=== PATIENT | male | born 1995 | race Caucasian/White ===

== ENCOUNTER 2021-04-19 01:50 | Emergency (ER) | payer SELFPAY ==
[~2021-04-19] VITALS: Ht 182.9 cm; Wt 113.6 kg
[2021-04-19 01:50] VITALS: BP 136/84
[2021-04-19] MEDS ORDERED: guaiFENesin DM 200MG/20MG 10 ML SYRUP PO ONE (02:15)
--- NOTE | 2021-04-19 02:23 | PHYS DOC ---
Adult General HPI HPI Patient is an otherwise healthy 25-year-old male who presents with a chief complaint of cough and body aches for the last 2 days. Denies any known ill contacts. Denies any recent trauma, travels, fevers, chest pain, shortness of breath, abdominal pain, nausea, vomiting, dysuria, hematuria, blood in the stool or diarrhea. States he is eating and drinking normally for him. States he is making urine and stool normally for him. Review of Systems Review of Systems Review of systems otherwise unremarkable except noted in HPI Physical Exam Physical Exam Constitutional: Well developed, well nourished, no acute distress, non-toxic appearance. [] HENT: Normocephalic, atraumatic, bilateral external ears normal, oropharynx moist, no oral exudates, nose normal. [] Eyes: conjunctiva normal, no discharge. [] Neck: Normal range of motion, no tenderness, supple, no stridor. [] Cardiovascular:Heart rate regular rhythm, no murmur [] Lungs & Thorax: Bilateral breath sounds clear to auscultation [] Skin: Warm, dry, no erythema, no rash. [] Extremities: No tenderness, no cyanosis, no clubbing, ROM intact, no edema. [] Neurologic: Alert and oriented X 3, normal motor function, normal sensory function, no focal deficits noted. [] Psychologic: Affect normal, judgement normal, mood normal. [] EKG EKG [] Radiology/Procedures Radiology/Procedures [] Heart Score C/O Chest Pain: No Risk Factors: Risk Factors: DM, Current or recent (<one month) smoker, HTN, HLP, family history of CAD, obesity. Risk Scores: Risk Factors: DM, Current or recent (<one month) smoker, HTN, HLP, family history of CAD, obesity. Course & Med Decision Making Course & Med Decision Making Patient is a 25-year-old male who presents with cough and body aches Vital signs not concerning. Physical exam noted above. Given Tylenol and cough medicine. Chest x-ray not concerning. Discussed all findings with patient and discussed symptomatic treatment at home for viral syndrome. Advised to follow-up with primary care physician in the morning to update on ED visit. Gave return precautions to the ED. Patient grateful, verbalized understanding and agreed with plan of discharge. Dragon Disclaimer Dragon Disclaimer This electronic medical record was generated, in whole or in part, using a voice recognition dictation system. Departure Departure: Impression: Primary Impression: Viral syndrome Disposition: HOME / SELF CARE / HOMELESS Condition: GOOD Referrals: DARVIN FOOTE MD (PCP) Patient Instructions: Viral Syndrome Additional Instructions: Thank you for coming into the emergency department tonight and allowing us to take care of you. Please read the attached information carefully to go back over some of the things we discussed. Please continue an [id number] regimen of Tylenol, ibuprofen and cough medicine as needed. Please follow-up with your primary care physician soon as you can update on ED visit and set up a follow-up. You were given a work note at your request. Please come back with new or concerning symptoms as discussed. LIYA WEINSTEIN MD Apr 19, 2021 02:23
[2021-04-19] MEDS ORDERED: ACETAMINOPHEN 500 MG TABLET PO ONE (02:30)
--- NOTE | 2021-04-19 04:53 | RAD ---
EXAM: XR CHEST 1V 04/19/2021 2:20 AM CLINICAL INDICATION: Cough COMPARISON: None TECHNIQUE: AP upright view of the chest FINDINGS: The heart and mediastinum are normal. Lungs are well-expanded and clear. No consolidatio n, pleural effusion, or pneumothorax. Pulmonary vascularity is normal. The thoracic skeleton is int act. IMPRESSION: Normal chest radiograph. Electronically signed by: Kemi Santana MD (04/19/2021 4:50 AM) [facility]
== END 2021-04-19 02:40 | disposition home or self-care (01) ==
LOC: ER 01:50
DX: B34.9 Viral infection, unspecified (principal)
CPT/HCPCS: 71045; 99283

== ENCOUNTER 2021-05-19 03:23 | Emergency (ER) | payer SELFPAY ==
[~2021-05-19] VITALS: Ht 182.9 cm; Wt 117.0 kg
[2021-05-19 03:23] VITALS: BP 137/91
--- NOTE | 2021-05-19 03:58 | PHYS DOC ---
Past History Past Surgical History: No Surgical History Alcohol Use: None Adult General Chief Complaint Chief Complaint: MULTIPLE COMPLAINTS HPI HPI Patient is a otherwise healthy 25-year-old male who presents to the emergency department with a chief complaint of body aches, chills and some lightheadedness that started while he was at work earlier today and is concerned he may have Covid and would like to be tested. States he had some nasal congestion and a sore throat as well over the last couple of days. States he is able to eat and drink without issue. States he is making urine and stool without issue. Denies any headache, chest pain, shortness of breath, abdominal pain, diarrhea. Review of Systems Review of Systems Review of systems otherwise unremarkable except noted in HPI Allergies Allergies Allergies Coded Allergies Type Severity Reaction Last Updated Verified No Known Drug Allergies 04/19/21 No Physical Exam Physical Exam Constitutional: Well developed, well nourished, no acute distress, non-toxic appearance. [] HENT: Normocephalic, atraumatic, bilateral external ears normal, oropharynx moist, no oral exudates, nose normal. [] Eyes: conjunctiva normal, no discharge. [] Neck: Normal range of motion, no tenderness, supple, no stridor. [] Cardiovascular:Heart rate regular rhythm, no murmur [] Lungs & Thorax: Bilateral breath sounds clear to auscultation [] Abdomen: Bowel sounds normal, soft, no tenderness, no masses, no pulsatile masses. [] Skin: Warm, dry, no erythema, no rash. [] Back: No tenderness, no CVA tenderness. [] Extremities: No tenderness, no cyanosis, no clubbing, ROM intact, no edema. [] Neurologic: Alert and oriented X 3, normal motor function, normal sensory function, able to sit, stand and walk without issue, no focal deficits noted. [] Psychologic: Affect normal, judgement normal, mood normal. [] Current Patient Data Vital Signs Vital Signs Date Time Temp Pulse Resp B/P (MAP) Pulse Ox O2 Delivery O2 Flow Rate FiO2 05/19/21 03:23 98.6 89 18 137/91 (106) 98 Room Air EKG EKG [] Radiology/Procedures Radiology/Procedures [] Heart Score C/O Chest Pain: No Risk Factors: Risk Factors: DM, Current or recent (<one month) smoker, HTN, HLP, family history of CAD, obesity. Risk Scores: Risk Factors: DM, Current or recent (<one month) smoker, HTN, HLP, family history of CAD, obesity. Course & Med Decision Making Course & Med Decision Making Patient is a 25-year-old male who presents with nasal congestion, sore throat, body aches and chills wanting a Covid swab Vital signs not concerning. Physical exam noted above. Patient given Tylenol, ibuprofen and diazepam for pain, nausea and lightheadedness Discussed findings with patient. Discussed symptom management at home. [] Dragon Disclaimer Dragon Disclaimer This electronic medical record was generated, in whole or in part, using a voice recognition dictation system. Departure Departure: Impression: Primary Impression: Viral syndrome Additional Impression: Person under investigation for COVID-19 Disposition: HOME / SELF CARE / HOMELESS Condition: STABLE Referrals: DARVIN FOOTE MD (PCP) Patient Instructions: Viral Syndrome Additional Instructions: Thank you for coming into the emergency department tonight and allowing us to take care of you. Please read the attached information carefully to go over the things we discussed. Please start a Tylenol and ibuprofen regimen as well as Benadryl. Please take your nausea medicine as needed. Please be sure to drink plenty of fluids and try to eat at least 3 nutritious meals a day and take a multivitamin. Please be sure to read all of your Covid information given. Please call your primary care physician in the morning to update on your ED visit on your Covid test that is pending. Please come back to the emergency department with new or concerning symptoms as we discussed. You have been tested for or diagnosed with COVID-19. It is an infection caused by a new type of coronavirus. COVID-19 will cause cold-like or mild flu symptoms in most. It can cause more severe symptoms like problems breathing in some. There is no treatment for COVID-19. The body will clear the infection over time. Self-care will help to ease discomfort. Steps to Take: Self-Care Rest as needed. Healthy habits may help you feel better. Steps include: Choose healthy foods including fruits and vegetables. Drink water throughout the day. Get plenty of sleep each night. If you smoke, try to quit. It may ease breathing. Avoid alcohol. Keep Others Healthy The virus can spread to others. Droplets are released every time you sneeze or cough. The droplets can get into the mouth, nose, or eyes of people near you and lead to infection. To lower the chances of spreading COVID-19 to others: Stay at home until your doctor has said it is safe to leave. If you tested positive this will mean staying isolated until both of the following are true: At least 7 days have passed since the start of illness. You are free of fever for at least 72 hours without the use of medicine. During this time: - Avoid public areas, events, or transportation. Do not return to work or school until your doctor has said it is safe to do so. - Call ahead if you need to go to a medical center. Let them know you may have COVID-19. It will help them guide you where to go. They may also ask you to wear a facemask when you come to the office. - If you call for emergency medical services, let them know you may have COVID- 19. While at home: - Try to avoid close contact with others. Stay about 6 feet away. - If possible, spend most of your time in a separate room from others. - Use a face mask if you will be in close contact with others such as sharing a room or vehicle. - Have someone wipe down common surfaces in the home. Use household environmental services worker every day on areas like doorknobs, counters, or sinks. - Cough or sneeze into a tissue. Throw the tissue away right after use. If a tissue is not available, cough or sneeze into your elbow. - Wash your hands often. Wash them after sneezing or coughing. Use soap and water and wash for at least 20 seconds. Alcohol based hand lamp cleaner street light can be used if soap and water is not available. - Do not prepare food for others. Avoid sharing personal items like forks, spoons, or toothbrushes. - Avoid close contact with pets while you are sick. There is no evidence of the virus passing to pets. This is a safety step until more is known about this virus. Isolation can be frustrating. Social interaction can help. Keep in touch with friends and family through phone and tech options. You can still interact with others in your home, just keep a safe distance of about 6 feet. Follow-up: Your doctors office will check in with you to see if there are any changes in your health. You may be asked to keep track of symptoms to share with them. They will also let you know when you are clear to be in public again. Problems to Look Out For: Contact your doctor if your recovery is not going as you expect. Get emergency care if you have problems such as: - Trouble breathing - Nonstop chest pain or pressure - Changes in awareness, confusion, or problems waking - Lips or face have bluish color - Worsening of symptoms If you think you have an emergency, call for emergency medical services right away. [facility] Health Problem Qualifiers LIYA WEINSTEIN MD May 19, 2021 03:58
[2021-05-19] MEDS ORDERED: diazePAM 5 MG TABLET. PO ONE (04:00)
[2021-05-19] MEDS ORDERED: ACETAMINOPHEN 500 MG TABLET PO ONE (04:00)
[2021-05-19] MEDS ORDERED: IBUPROFEN 600 MG TABLET. PO ONE (04:00)
[2021-05-19] MEDS ORDERED: ONDANSETRON 4MG ODT 4TABLET STARTPACK. PO ONE (04:15)
[2021-05-19] MEDS ORDERED: guaiFENesin/CODEINE 100mg/10mg 5 ML LIQUID PO ONE (04:15)
[2021-05-19 04:56] LABS: INFLUENZA A PATIENT NEGATIVE (NEGATIVE); INFLUENZA B PATIENT NEGATIVE (NEGATIVE)
--- NOTE | 2021-05-20 13:40 | NUR ---
PATIENT NOTIFIED OF COVID RESULTS
== END 2021-05-19 04:37 | disposition home or self-care (01) ==
LOC: ER 03:23
DX: B34.9 Viral infection, unspecified (principal); Z20.822 Contact with and (suspected) exposure to COVID-19
CPT/HCPCS: 87804; 99284; C9803; Q0162; U0003

== ENCOUNTER 2021-09-16 01:12 | Emergency (ER) | payer OTHER ==
[~2021-09-16] VITALS: Ht 182.9 cm; Wt 117.0 kg
[2021-09-16] MEDS ORDERED: DEXAMETHASONE SOD PHOS 10 MG/ML VIAL. IVP ONE (01:45)
[2021-09-16] MEDS ORDERED: PENICILLIN G BENZATHINE LA 1,200,000 UNIT/2 ML DISP.SYRIN. IM ONE (01:45)
[2021-09-16] MEDS ORDERED: KETOROLAC 60 MG/2 ML VIAL. IM ONE (01:45)
--- NOTE | 2021-09-16 01:48 | PHYS DOC ---
Past History Past Surgical History: No Surgical History Alcohol Use: None General Adult EDM: Chief Complaint: SORE THROAT HPI: HPI: Patient is a 26-year-old male coming in for sore throat that is making difficult to swallow. Patient states he is still able to manage his secretions but hurts. Took Aleve 1 time in the morning and has been taking Mucinex. Has had family members with similar symptoms. States he had a fever a few days ago but has not been taking his temperature. Denies any cough, vomiting, or diarrhea. Review of Systems: Review of Systems: All other systems within normal limits except for as noted in the HPI Current Medications: Current Meds: Current Medications Medications (Trade) Dose Ordered Sig/Wilbur Start Time Stop Time Status Last Admin Dose Admin Dexamethasone Sodium Phosphate (Decadron) 10 mg 1X ONCE 09/16/21 01:45 09/16/21 01:46 Ketorolac Tromethamine (Toradol Im) 60 mg 1X ONCE 09/16/21 01:45 09/16/21 01:46 Penicillin G Benzathine (Bicillin L-A) 1,200,000 unit 1X ONCE 09/16/21 01:45 09/16/21 01:46 Allergies: Allergies: Allergies Coded Allergies Type Severity Reaction Last Updated Verified No Known Drug Allergies 04/19/21 No Physical Exam: PE: Constitutional: Well developed, well nourished, no acute distress, non-toxic appearance. [] HENT: Normocephalic, atraumatic, bilateral external ears normal, nose normal. Bilateral swollen tonsils with erythema and exudates [] Eyes: PERRLA, conjunctiva normal, no discharge. [] Neck: No rigidity, supple, no stridor. Anterior cervical lymphadenopathy [] Cardiovascular: Regular rate and rhythm, brisk cap refill [] Lungs & Thorax: Non labored symmetric respirations, no tachypnea or respiratory distress [] Abdomen: Soft, nondistended. Skin: Warm, dry, no erythema, no rash. [] Back: Unremarkable Extremities: No deformities, range of motion grossly intact, no lower extremity edema [] Neurologic: Alert and oriented X 3, no focal deficits noted. [] Psychologic: Affect normal, judgement normal, mood normal. [] Current Patient Data: Vital Signs: Vital Signs Date Time Temp Pulse Resp B/P (MAP) Pulse Ox O2 Delivery O2 Flow Rate FiO2 4/28/22 01:12 98.1 86 18 142/84 (103) 98 Room Air EKG: EKG: [] Radiology/Procedures: Radiology/Procedures: [] Heart Score: C/O Chest Pain: No Risk Factors: Risk Factors: DM, Current or recent (<one month) smoker, HTN, HLP, family history of CAD, obesity. Risk Scores: Score 0 - 3: 2.5% MACE over next 6 weeks - Discharge Home Score 4 - 6: 20.3% MACE over next 6 weeks - Admit for Clinical Observation Score 7 - 10: 72.7% MACE over next 6 weeks - Early Invasive Strategies Course & Med Decision Making: Course & Med Decision Making Patient's physical exam and presentation makes it very unlikely for streptococcal pharyngitis. Will treat empirically. Kam Disclaimer: Kam Disclaimer: This electronic medical record was generated, in whole or in part, using a voice recognition dictation system. Departure Departure: Impression: Primary Impression: Strep pharyngitis Disposition: HOME / SELF CARE / HOMELESS Condition: STABLE Referrals: DARVIN FOOTE MD (PCP) Patient Instructions: Viral and Bacterial Pharyngitis LEWIS LÓPEZ MD Sep 16, 2021 01:48
[2021-09-16] MEDS ORDERED: DEXAMETHASONE SOD PHOS 10 MG/ML VIAL. PO ONE (02:00)
[2021-09-16 02:34] VITALS: BP 147/91
== END 2021-09-16 02:34 | disposition home or self-care (01) ==
LOC: ER 01:12
DX: J02.0 Streptococcal pharyngitis (principal)
CPT/HCPCS: 87070; 87147; 87880; 96372; 99284; J0561; J1100; J1885